=== PATIENT | female | born 1985 | race Caucasian/White ===

== ENCOUNTER 2016-10-08 11:09 | Emergency (ER) | payer MEDICAID ==
[~2016-10-08] VITALS: Ht 165.1 cm; Wt 76.0 kg
[~2016-10-08 11:09] MED LIST: ANTA250T PO; ZOLO50TA PO
[2016-10-08 11:23] VITALS: BP 138/92; PULSE 108; RESP 20; TEMP 98; O2SAT 97
--- NOTE | 2016-10-08 11:36 | PD ---
HPI Chief Complaint: Skin Problem Time Seen by Provider: 11:34 Travel History International Travel<30 days: No Contact w/Intl Traveler<30days: No Traveled to known affect area: No History of Present Illness HPI 31-year-old female presents the emergency department with right sided thigh painful swollen lesion for the past 3 days. Patient is unsure if this was due to some sort of bite or other cause. Patient has no history of MRSA or similar incidents in the past. Patient is very painful with the pain at 10 over 10 currently. She denies any spontaneous drainage from the area. She has had chills but no specific fever or other symptoms. She has no known drug allergies. PFSH Past Medical History Asthma: Yes (CHILDHOOD) Bipolar Disorder: Yes Anxiety: No Depression: Yes Cancer: Yes (NODULAR BASAL CELL CARCINOMA FOREHEAD 05/19) Cardiovascular Problems: No Chemotherapy: No Diminished Hearing: No Endocrine: No Gastrointestinal Disorders: Yes Genitourinary: Yes Hepatitis: Yes (HEP C) Immune Disorder: No Implanted Vascular Access Dvce: No Musculoskeletal: No Neurologic: No Psychiatric: Yes Reproductive: Yes (3 ABNORMAL PAP SMEARS 2013) Respiratory: Yes Immunizations Current: Yes Radiation Therapy: No ?: Not LMP: NOW : 1 Para: 1 Past Surgical History Abdominal Surgery: No Cardiac Surgery: No Section: Yes Ear Surgery: No Endocrine Surgery: No Eye Surgery: No Genitourinary Surgery: No Gynecologic Surgery: Yes Neurologic Surgery: No Oral Surgery: No Thoracic Surgery: Yes (BREAST AUGMENTATION) Other Surgery: Yes (Breast augmentation ) Social History Alcohol Use: Yes (4-5 shots weekly ) Tobacco Use: Yes (5-6 cigarettes per day ) Substance Use: No (hx of substance abuse (heroin)) Allergies-Medications (Allergen,Severity, Reaction): Coded Allergies: No Known Allergies (Verified , 10/08/16) Reported Meds & Prescriptions Reported Meds & Active Scripts Active Ibuprofen 800 Mg Tab 800 Mg PO Q8H PRN Bactrim DS (Sulfamethoxazole-Trimethoprim) 800-160 Mg Tab 1 Tab PO BID Acetaminophen Extra Strength (Acetaminophen) 500 Mg Cap 1,000 Mg PO Q6H PRN Review of Systems Except as stated in HPI: all other systems reviewed are Neg General / Constitutional: Positive: Chills, No: Fever Eyes: No: Visual changes HENT: No: Headaches Cardiovascular: No: Chest Pain or Discomfort Respiratory: No: Shortness of Breath Gastrointestinal: No: Abdominal Pain Genitourinary: No: Dysuria Musculoskeletal: No: Pain Skin: Positive Lesions (see history of present illness), No Rash Neurologic: No: Weakness Psychiatric: No: Depression Endocrine: No: Polydipsia Hematologic/Lymphatic: No: Easy Bruising Physical Exam Narrative GENERAL: Patient is in moderate distress. SKIN: Warm and dry. Normal Color. Normal turgor. Patient has tender, warm, indurated, lesion with erythema extending approximately 5 cm in diameter with central pointing consistent with abscess in the right upper posterior thigh. HEAD: Atraumatic. Normocephalic. EYES: Pupils equal and round. No scleral icterus. No injection or drainage. ENT: No nasal bleeding or discharge. Mucous membranes pink and moist. Pharynx is normal. NECK: Trachea midline. Neck is supple nontender. CARDIOVASCULAR: Regular rate and rhythm. RESPIRATORY: No accessory muscle use. Clear to auscultation. Breath sounds equal bilaterally. MUSCULOSKELETAL: Extremities without clubbing, cyanosis, or edema. No obvious deformities. NEUROLOGICAL: Awake and alert. No obvious cranial nerve deficits. Motor grossly within normal limits. Five out of 5 muscle strength in the arms and legs. Normal speech. PSYCHIATRIC: Appropriate mood and affect; insight and judgment normal. Data Data Last Documented VS Vital Signs Date Time Temp Pulse Resp B/P Pulse Ox O2 Delivery O2 Flow Rate FiO2 10/08/16 11:23 98.0 108 20 138/92 97 Orders Lidocai-Epi 1%-1:100,000 Inj (Xylocaine- (10/08/16 11:45) Wound Culture And Gram Stain (10/08/16 11:36) Ibuprofen (Motrin) (10/08/16 12:15) Sulfamet-Trimeth Ds 800-160 Mg (Bactrim (10/08/16 12:15) MDM Medical Decision Making Medical Screen Exam Complete: Yes Emergency Medical Condition: Yes Differential Diagnosis Cellulitis right thigh. MRSA. Abscess. Narrative Course Patient is in pain but medically stable at time of exam. I&D of abscess is performed, please see procedure note. Wound Culture sent to the lab. Patient is placed on Bactrim DS twice a day 7 days. Patient is given ibuprofen 600 mg 4 times a day when necessary. Patient is to return in 2 days for packing removal and wound check. Diagnosis Primary Impression: Abscess Patient Instructions: Abscess Incision and Drainage (ED), General Instructions , MRSA (Methicillin Resistant Staphylococcus Aureus) (ED) Additional Instructions: I&D of abscess is performed, please see procedure note. Wound Culture sent to the lab. Patient is placed on Bactrim DS twice a day 7 days. Patient is given ibuprofen 600 mg 4 times a day when necessary. Patient is to return in 2 days for packing removal and wound check. Med/Other Pt SpecificInfo: Prescription(s) given, Wound Care Scripts Ibuprofen 800 Mg Pfs065 Mg PO Q8H PRN (Pain/Inflammation) #30 TAB Prov:Kimani Guerrero MD 10/08/16 Sulfamethoxazole-Trimethoprim (Bactrim DS)800-160 Mg Tab1 Tab PO BID #14 TAB Prov:Kimani Guerrero MD 10/08/16 Acetaminophen (Acetaminophen Extra Strength)500 Mg Cap1,000 Mg PO Q6H PRN (PAIN SCALE 4 TO 10) #60 CAP Ref 1 Prov:Kimani Guerrero MD 10/08/16 Disposition: 01 DISCHARGE HOME Condition: Stable Rajan Torrez Oct 08, 2016 11:36
[2016-10-08] MEDS ORDERED: LIDOCAINE 1%/EPINEPHrine 1:100,000 SOLN 20 ML VIAL INFIL ONE (11:45)
[2016-10-08] MEDS ORDERED: BACT800T5 PO (12:12)
[2016-10-08] MEDS ORDERED: IBUP800T23 PO (12:12)
[2016-10-08] MEDS ORDERED: EXTR500C PO (12:12)
[2016-10-08] MEDS ORDERED: IBUPROFEN 800 MG TAB PO ONE (12:15)
[2016-10-08] MEDS ORDERED: SULFAMETHOXAZOLE-TRIMETHOPRIM DS 800-160 MG TAB PO ONE (12:15)
== END 2016-10-08 12:27 | disposition home or self-care (01) ==
LOC: PHEFT 11:09
DX: L02.415 Cutaneous abscess of right lower limb (principal); B95.62 Methicillin resistant Staphylococcus aureus infection as the cause of diseases classified elsewhere
CPT/HCPCS: 10061; 86403; 87070; 87186

== ENCOUNTER 2016-10-11 11:11 | Emergency (ER) | payer MEDICAID ==
[~2016-10-11] VITALS: Ht 165.1 cm; Wt 79.2 kg
[~2016-10-11 11:11] MED LIST changes: -ANTA250T PO; +BACT800T5 PO; +EXTR500C PO; +IBUP800T23 PO; -ZOLO50TA PO
[2016-10-11 11:19] VITALS: BP 117/80; PULSE 103; RESP 16; TEMP 98.2; O2SAT 99
--- NOTE | 2016-10-11 11:43 | PD ---
HPI Chief Complaint: Wound/Suture/Staple Re-Check Time Seen by Provider: 11:43 Travel History International Travel<30 days: No Contact w/Intl Traveler<30days: No Traveled to known affect area: No History of Present Illness HPI 31-year-old female presents to the ED for evaluation and packing removal of I&D of abscess of the right posterior thigh. Patient was seen 10/08/16 and an abscess I&D was performed. She states that her symptoms have improved. She denies fever or chills. She endorses compliance with antibiotics that were prescribed. PFSH Past Medical History Asthma: Yes (CHILDHOOD) Bipolar Disorder: Yes Anxiety: No Depression: Yes Cancer: Yes (NODULAR BASAL CELL CARCINOMA FOREHEAD 05/19) Cardiovascular Problems: No Chemotherapy: No Diminished Hearing: No Endocrine: No Gastrointestinal Disorders: Yes Genitourinary: Yes Hepatitis: Yes (HEP C) Immune Disorder: No Implanted Vascular Access Dvce: No Musculoskeletal: No Neurologic: No Psychiatric: Yes Reproductive: Yes (3 ABNORMAL PAP SMEARS 2013) Respiratory: Yes Immunizations Current: Yes Radiation Therapy: No Tetanus Vaccination: < 5 Years Influenza Vaccination: No ?: Not LMP: 10/08/16 : 1 Para: 1 Past Surgical History Abdominal Surgery: No Cardiac Surgery: No Section: Yes (x 1) Ear Surgery: No Endocrine Surgery: No Eye Surgery: No Genitourinary Surgery: No Gynecologic Surgery: Yes Neurologic Surgery: No Oral Surgery: No Thoracic Surgery: Yes (BREAST AUGMENTATION) Other Surgery: Yes (Breast augmentation ) Social History Alcohol Use: Yes (socially mix drinks) Tobacco Use: Yes (1/2PPD) Substance Use: No (hx of substance abuse (heroin)) Allergies-Medications (Allergen,Severity, Reaction): Coded Allergies: *MDRO Multi-Drug Resistant Organism (Verified Adverse Reaction, Unknown, ) MRSA (thigh)-10/08/16 Reported Meds & Prescriptions Reported Meds & Active Scripts Active Ibuprofen 800 Mg Tab 800 Mg PO Q8H PRN Bactrim DS (Sulfamethoxazole-Trimethoprim) 800-160 Mg Tab 1 Tab PO BID Acetaminophen Extra Strength (Acetaminophen) 500 Mg Cap 1,000 Mg PO Q6H PRN Review of Systems Except as stated in HPI: all other systems reviewed are Neg Physical Exam Narrative GENERAL: Well-nourished, well-developed white female no acute distress. SKIN: Warm and dry. There is a 1 cm puncture wound with a small amount of drainage on the posterior right thigh. There is a 1 cm circumferential area of tenderness surrounding this puncture wound. No erythema, warmth, cellulitic streaking. No packing present. HEAD: Normocephalic. EYES: No scleral icterus. No injection or drainage. NECK: Supple, trachea midline. No JVD or lymphadenopathy. CARDIOVASCULAR: Regular rate and rhythm without murmurs, gallops, or rubs. RESPIRATORY: Breath sounds equal bilaterally. No accessory muscle use. GASTROINTESTINAL: Abdomen soft, non-tender, nondistended. MUSCULOSKELETAL: No cyanosis, or edema. BACK: Nontender without obvious deformity. No CVA tenderness. Data Data Last Documented VS Vital Signs Date Time Temp Pulse Resp B/P Pulse Ox O2 Delivery O2 Flow Rate FiO2 10/11/16 11:25 16 10/11/16 11:19 98.2 103 117/80 99 MDM Medical Decision Making Medical Screen Exam Complete: Yes Emergency Medical Condition: Yes Differential Diagnosis Abscess recheck versus cellulitis versus wound infection versus other Narrative Course 31-year-old female presents to the ED for evaluation and packing removal of I&D of abscess of the right posterior thigh. Patient was seen 10/08/16 and an abscess I&D was performed. She states that her symptoms have improved. She denies fever or chills. She endorses compliance with antibiotics that were prescribed. Vitals reviewed. Physical examination reveals a well-appearing white female in no acute distress. There is a 1 cm puncture wound on the posterior right thigh, tender circumferentially. No erythema, warmth, cellulitic streaking. I probed the wound with a pair of forceps and there is no packing present. A clean, dry dressing was applied. Wound care instructions were reinforced. Plans with antibiotics was reinforced. Patient is instructed to follow-up with the primary care. She indicated understanding of the instructions. She is stable and discharged home. Diagnosis Primary Impression: Abscess re-check Referrals: Primary Care Physician Patient Instructions: Abscess Follow-up (ED), General Instructions Additional Instructions: Warm compresses applied to the area may help to crease pain and swelling. Continue antibiotics twice a day as prescribed until they're gone. [id number] pain medication such as ibuprofen as directed on label, as needed for pain. Follow-up with the primary care provider this week. Return to the ED for any urgent or emergent medical condition. Disposition: 01 DISCHARGE HOME Condition: Stable Vicki Dang Oct 11, 2016 11:43
== END 2016-10-11 12:03 | disposition home or self-care (01) ==
LOC: PHEFT 11:11
DX: Z48.00 Encounter for change or removal of nonsurgical wound dressing (principal)
CPT/HCPCS: 99281

== ENCOUNTER 2016-12-20 20:32 | Emergency (ER) | payer MEDICAID ==
[~2016-12-20] VITALS: Ht 167.6 cm; Wt 75.0 kg
[2016-12-20 20:34] VITALS: BP 157/107; PULSE 126; RESP 20; TEMP 99.1; O2SAT 96
[2016-12-20] MEDS ORDERED: SODIUM CHLOR 0.9% 1000 ML INJ 1,000 ML IV SCH (22:18)
[2016-12-20] MEDS ORDERED: ONDANSETRON HCL 4 MG/2 ML VIAL IVP ONE (22:30)
[2016-12-20] MEDS ORDERED: HYDROmorphone HCL PF 1 MG/ML VIAL IVS ONE (22:30)
[2016-12-20] MEDS ORDERED: ALUMINUM/MAGNESIUM/SIMETH 30 ML CUP PO ONE (22:30)
[2016-12-20] MEDS ORDERED: LIDOCAINE VISCOUS 2% SOLN 15 ML UDC PO ONE (22:30)
[2016-12-20] MEDS ORDERED: SODIUM CHLORIDE 0.9% FLUSH 10 ML FLUSH IV FLUSH PRN (22:30)
[2016-12-20] MEDS ORDERED: LITH300C2 PO (22:54)
[2016-12-20] MEDS ORDERED: IOHEXOL 350 MG/ML 10 ML VIAL (for RAD DIAG) IV ONE (23:00)
[2016-12-20 23:04] LABS: AUTOMATED NEUTROPHIL # 2.3 TH/MM3 (1.8-7.7); BASOPHIL # 0.1 TH/MM3 (0-0.2); BASOPHIL % 1.2 % (0.0-2.0); EOSINOPHIL # 0.1 TH/MM3 (0-0.4); EOSINOPHIL % 2.3 % (0.0-4.0); HEMATOCRIT 42.1 % (35.0-46.0); HEMO FLAGS DIFF FINAL; LYMPH % 52.3 % (9.0-44.0); LYMPHOCYTE # 3.1 TH/MM3 (1.0-4.8); MEAN CELL VOLUME 88.4 FL (80.0-100.0); MEAN CORPUSCULAR HEMOGLOBIN 29.6 PG (27.0-34.0); MEAN CORPUSCULAR HGB CONC 33.4 % (32.0-36.0); MONO % 4.4 % (0.0-8.0); NEUT % 39.8 % (16.0-70.0); PLATELET COUNT 130 TH/MM3 (150-450); RED BLOOD COUNT 4.77 MIL/MM3 (4.00-5.30); RED CELL DISTRIBUTION WIDTH 15.4 % (11.6-17.2); WHITE BLOOD COUNT 5.9 TH/MM3 (4.0-11.0)
--- NOTE | 2016-12-20 23:20 | RADRPT ---
EXAM DATE/TIME: 12/20/2016 22:57 [facility] COMPARISON: CT ABDOMEN & PELVIS W CONTRAST, April 03, 2014, 18:07. INDICATIONS : Right upper quadrant pain. IV CONTRAST: 97 cc Omnipaque 350 (iohexol) IV ORAL CONTRAST: No oral contrast ingested. RADIATION DOSE: 7.56 CTDIvol (mGy) MEDICAL HISTORY : Hepatitis C. SURGICAL HISTORY : section. ENCOUNTER: Initial ACUITY: 1 day PAIN SCALE: 5/10 LOCATION: Right upper quadrant abdomen TECHNIQUE: Volumetric scanning of the abdomen and pelvis was performed. Using automated exposure control and ad justment of the mA and/or kV according to patient size, radiation dose was kept as low as reasonably achievable to obtain optimal diagnostic quality images. FINDINGS: Lung bases are clear. Diffuse fatty infiltration of the liver similar to prior study. Spleen, adrenal s, kidneys and pancreas unremarkable. No calcified gallstones. No biliary ductal dilatation. There is no free fluid or free air. No bowel obstruction. No adenopathy. No acute bony abnormalities. Previous breast augmentation. CONCLUSION: 1. No acute findings. Diffuse fatty liver similar to prior study of 2016. Ousmane Trimble MD on December 20, 2016 at 23:12 Board Certified Radiologist. This report was verified electronically.
[2016-12-20 23:31] LABS: ANION GAP 13 MEQ/L (5-15)
--- NOTE | 2016-12-20 23:35 | PD ---
HPI Chief Complaint: Abdominal Pain Time Seen by Provider: 22:18 Travel History International Travel<30 days: No Contact w/Intl Traveler<30days: No Traveled to known affect area: No History of Present Illness HPI 31-year-old female arrives complaining of right upper quadrant pain. She has had it for 3 days. It became much worse tonight. Similar prior episodes have occurred. She has no urinary complaint. Last menstruation ascended today. The onset was gradual. She states it is excruciating. She drank 1 pint of liquor tonight. She smokes tobacco. She reports nausea vomiting and subjective fever. She's had diarrhea. Appetite has been decreased. PFSH Past Medical History Asthma: Yes (CHILDHOOD) Bipolar Disorder: Yes Anxiety: No Depression: Yes Cancer: Yes (NODULAR BASAL CELL CARCINOMA FOREHEAD 05/19) Cardiovascular Problems: No Chemotherapy: No Diminished Hearing: No Endocrine: No Gastrointestinal Disorders: Yes Genitourinary: Yes Hepatitis: Yes (HEP C) Immune Disorder: No Implanted Vascular Access Dvce: No Musculoskeletal: No Neurologic: No Psychiatric: Yes Reproductive: Yes (3 ABNORMAL PAP SMEARS 2013) Respiratory: Yes Immunizations Current: Yes Radiation Therapy: No ?: Not LMP: 5-15-17 : 1 Para: 1 Past Surgical History Abdominal Surgery: No Cardiac Surgery: No Section: Yes (x 1) Ear Surgery: No Endocrine Surgery: No Eye Surgery: No Genitourinary Surgery: No Gynecologic Surgery: Yes Neurologic Surgery: No Oral Surgery: No Thoracic Surgery: Yes (BREAST AUGMENTATION) Other Surgery: Yes (Breast augmentation ) Social History Alcohol Use: Yes (HEAVY) Tobacco Use: Yes (1/2PPD) Substance Use: No (hx of substance abuse (heroin)) Allergies-Medications (Allergen,Severity, Reaction): Coded Allergies: *MDRO Multi-Drug Resistant Organism (Verified Adverse Reaction, Unknown, ) MRSA (thigh)-10/08/16 Reported Meds & Prescriptions Reported Meds & Active Scripts Active Reglan (Metoclopramide HCl) 5 Mg Tab 5 Mg PO TIDAC PRN Lortab (Hydrocodone-Acetaminophen) 5-325 Mg Tab 1-2 Tab PO Q6H PRN Reported [place] Carbonate Unknown Strength Cap Unknown Dose PO BID Review of Systems Except as stated in HPI: all other systems reviewed are Neg Gastrointestinal: Positive: Nausea, Vomiting, Diarrhea, Abdominal Pain Physical Exam Narrative GENERAL: 31-year-old female mild distress secondary to pain SKIN: Focused skin assessment warm/dry. HEAD: Atraumatic. Normocephalic. EYES: Pupils equal and round. No scleral icterus. No injection or drainage. ENT: No nasal bleeding or discharge. Mucous membranes pink and moist. NECK: Trachea midline. No JVD. CARDIOVASCULAR: Regular rate and rhythm. No murmur appreciated. RESPIRATORY: No accessory muscle use. Clear to auscultation. Breath sounds equal bilaterally. GASTROINTESTINAL: Soft. Marked tenderness to palpation in the right upper quadrant. MUSCULOSKELETAL: No obvious deformities. No clubbing. No cyanosis. No edema. NEUROLOGICAL: Awake and alert. No obvious cranial nerve deficits. Motor grossly within normal limits. Normal speech. PSYCHIATRIC: Appropriate mood and affect; insight and judgment normal. Data Data Last Documented VS Vital Signs Date Time Temp Pulse Resp B/P Pulse Ox O2 Delivery O2 Flow Rate FiO2 12/20/16 20:34 99.1 126 20 157/107 96 Vital signs reviewed Orders Complete Blood Count With Diff (12/20/16 22:18) Comprehensive Metabolic Panel (12/20/16 22:18) Lipase (12/20/16 22:18) Urinalysis - C+S If Indicated (12/20/16 22:18) Ct Abd/Pel W Iv Contrast(Rout) (12/20/16 22:18) Iv Access Insert/Monitor (12/20/16 22:18) Ecg Monitoring (12/20/16 22:18) Oximetry (12/20/16 22:18) Ondansetron Inj (Zofran Inj) (12/20/16 22:30) Sodium Chlor 0.9% 1000 Ml Inj (Ns 1000 M (12/20/16 22:18) Sodium Chloride 0.9% Flush (Ns Flush) (12/20/16 22:30) Hydromorphone Pf Inj (Dilaudid Pf Inj) (12/20/16 22:30) Al-Mag Hy-Si 40-40-4 Mg/Ml Liq (Mag-Al P (12/20/16 22:30) Lidocaine 2% Viscous (Xylocaine 2% Visco (12/20/16 22:30) Alcohol (Ethanol) (12/20/16 22:18) Drug Screen, Random Urine (12/20/16 22:18) Iohexol 350 Inj (Omnipaque 350 Inj) (12/20/16 23:00) Labs Laboratory Tests Test 12/20/16 12/20/16 22:50 23:15 White Blood Count 5.9 TH/MM3 Red Blood Count 4.77 MIL/MM3 Hemoglobin 14.1 GM/DL Hematocrit 42.1 % Mean Corpuscular Volume 88.4 FL Mean Corpuscular Hemoglobin 29.6 PG Mean Corpuscular Hemoglobin 33.4 % Concent Red Cell Distribution Width 15.4 % Platelet Count 130 TH/MM3 Mean Platelet Volume 7.6 FL Neutrophils (%) (Auto) 39.8 % Lymphocytes (%) (Auto) 52.3 % Monocytes (%) (Auto) 4.4 % Eosinophils (%) (Auto) 2.3 % Basophils (%) (Auto) 1.2 % Neutrophils # (Auto) 2.3 TH/MM3 Lymphocytes # (Auto) 3.1 TH/MM3 Monocytes # (Auto) 0.3 TH/MM3 Eosinophils # (Auto) 0.1 TH/MM3 Basophils # (Auto) 0.1 TH/MM3 CBC Comment DIFF FINAL Differential Comment Sodium Level 141 MEQ/L Potassium Level 3.8 MEQ/L Chloride Level 104 MEQ/L Carbon Dioxide Level 23.7 MEQ/L Anion Gap 13 MEQ/L Blood Urea Nitrogen 4 MG/DL Creatinine 0.68 MG/DL Estimat Glomerular Filtration 102 ML/MIN Rate Random Glucose 85 MG/DL Calcium Level 8.7 MG/DL Total Bilirubin 0.4 MG/DL Aspartate Amino Transf 267 U/L (AST/SGOT) Alanine Aminotransferase 239 U/L (ALT/SGPT) Alkaline Phosphatase 108 U/L Total Protein 9.1 GM/DL Albumin 4.6 GM/DL Lipase 555 U/L Ethyl Alcohol Level 366 MG/DL Urine Color LIGHT-YELLOW Urine Turbidity HAZY Urine pH 7.0 Urine Specific [place] 1.009 Urine Protein TRACE mg/dL Urine Glucose (UA) NEG mg/dL Urine Ketones NEG mg/dL Urine Occult Blood NEG Urine Nitrite NEG Urine Bilirubin NEG Urine Urobilinogen LESS THAN 2.0 MG/DL Urine Leukocyte Esterase NEG Urine RBC 1 /hpf Urine WBC 1 /hpf Urine Squamous Epithelial <1 /hpf Cells Urine Amorphous Sediment RARE Microscopic Urinalysis Comment CULT NOT INDICATED Urine Opiates Screen NEG Urine Barbiturates Screen NEG Urine Amphetamines Screen NEG Urine Benzodiazepines Screen NEG Urine Cocaine Screen NEG Urine Cannabinoids Screen NEG MDM Medical Decision Making Medical Screen Exam Complete: Yes Emergency Medical Condition: Yes Medical Record Reviewed: Yes Differential Diagnosis Constipation, Gastritis, Acute Cholecystitis, Biliary Colic, Pancreatitis, KERR , Hepatitis, Bowel Obstruction, Cystitis, Mesenteric Ischemia, AAA, Appendicitis , Renal Stone/Hydronephrosis, GERD, perforated viscous Narrative Course CBC & BMP Diagram 12/20/16 22:50 AST 267 ALT 239 Lipase 555 EtOH 366 UA: No UTI Last 24 hours Impressions Abdomen/Pelvis CT 12/20/168 Signed Impressions: Service Date/Time: Tuesday, December 20, 2016 22:57 - CONCLUSION: 1. No acute findings. Diffuse fatty liver similar to prior study of 2016. Ousmane Trimble MD The patient is resting comfortably and feels better, is alert and in no distress. The patients results and examination findings were discussed. The repeat examination is unremarkable and benign. The history, exam, diagnostic testing, and current condition do not suggest any significant pathology to warrant further testing, continued ED treatment, admission, or surgical evaluation at this point. The vital signs have been stable. The patient does not have uncontrollable pain, intractable vomiting, or other significant symptoms. The patient's condition is stable and appropriate for discharge. The patient will pursue further outpatient evaluation with a primary care physician or other designated or consulting physician as indicated in the discharge instructions. The patient expressed understanding and was agreeable with this plan. Diagnosis Primary Impression: Pancreatitis, acute Qualified Code: K85.20 - Alcohol-induced acute pancreatitis, unspecified complication status Additional Impressions: Transaminitis Alcohol abuse Referrals: Meenakshi Orosco MD 2 days Additional Instructions: You have a choice when it comes to health care, and we are glad that you chose [facility]. Hopefully, we have met your expectations on today's visit. You are welcome to return to [facility] at any time, as we are committed to meeting the health care needs of our community. PLEASE STOP DRINKING ALCOHOL. Med/Other Pt SpecificInfo: Prescription(s) given Scripts Metoclopramide (Reglan)5 Mg Tab5 Mg PO TIDAC PRN (NAUSEA OR VOMITING) #10 TAB Ref 0 Prov:Irving Crespo MD 12/21/16 Hydrocodone-Acetaminophen (Lortab)5-325 Mg Tab1-2 Tab PO Q6H PRN (PAIN SCALE 6 TO 10) #20 TAB Ref 0 Prov:Irving Crespo MD 12/21/16 Disposition: 01 DISCHARGE HOME Condition: Stable Irving Crespo MD December 20, 2016 23:35
[2016-12-20 23:47] LABS: ALKALINE PHOSPHATASE 108 U/L (45-117); ALT (GPT) 239 U/L (10-53); AST (GOT) 267 U/L (15-37); BICARBONATE 23.7 MEQ/L (21.0-32.0); BLOOD UREA NITROGEN 4 MG/DL (7-18); CHLORIDE 104 MEQ/L (98-107); GLOMERULAR FILTRATION RATE 102 ML/MIN (>89); POTASSIUM 3.8 MEQ/L (3.5-5.1); SODIUM (NA) 141 MEQ/L (136-145); TOTAL BILIRUBIN ADULT 0.4 MG/DL (0.2-1.0)
[2016-12-20 23:54] LABS: BLOOD, URINE NEG (NEG); COMMENT (UR) CULT NOT INDICATED; CULTURE IF INDICATED CULT NOT INDICATED; GLUCOSE,URINE NEG (NEG); KETONE, URINE NEG (NEG); NITRITE,URINE NEG (NEG); SQUAMOUS EPITHELIAL CELL URINE <1 /hpf (0-5); URINE COLOR LIGHT-YELLOW (YELLW/STRAW)
[2016-12-20 23:58] LABS: AMPHETAMINE, URINE NEG (NEG); BARBITURATES, URINE NEG (NEG); COCAINE, URINE NEG (NEG)
[2016-12-21] MEDS ORDERED: HYDR-3533 PO (01:03)
[2016-12-21] MEDS ORDERED: REGL5TAB PO (01:03)
[2016-12-21] MEDS ORDERED: HYDROmorphone HCL PF 1 MG/ML VIAL IV PUSH ONE (01:30)
== END 2016-12-21 01:59 | disposition home or self-care (01) ==
LOC: NEPE 20:32
DX: K85.20 Alcohol induced acute pancreatitis without necrosis or infection (principal); R74.0 Nonspecific elevation of levels of transaminase and lactic acid dehydrogenase [LDH]; Z79.899 Other long term (current) drug therapy
CPT/HCPCS: 74177; 80053; 80307; 81001; 83690; 85025; 96361; 96374; 96375; 96376; 99284; J1170; J2405; J7030; Q9967

== ENCOUNTER 2017-02-01 20:35 | Inpatient (IN) | payer MEDICAID ==
[~2017-02-01] VITALS: Ht 165.1 cm; Wt 80.1 kg
[~2017-02-01 20:35] MED LIST changes: -BACT800T5 PO; -EXTR500C PO; +HYDR-3533 PO; -IBUP800T23 PO; +LITH300C2 PO; +REGL5TAB PO
[2017-02-01 20:36] VITALS: BP 151/103; PULSE 116; RESP 18; TEMP 97.9; O2SAT 97
[2017-02-01] MEDS ORDERED: SODIUM CHLOR 0.9% 1000 ML INJ 1,000 ML IV SCH (23:42)
[2017-02-01] MEDS ORDERED: ONDANSETRON HCL 4 MG/2 ML VIAL IVP ONE (23:45)
[2017-02-01] MEDS ORDERED: SODIUM CHLORIDE 0.9% FLUSH 10 ML FLUSH IV FLUSH PRN (23:45)
[2017-02-01] MEDS ORDERED: MORPHINE SULFATE 8 MG/ML INJ IV PUSH ONE (23:45)
--- NOTE | 2017-02-02 00:19 | PD ---
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 Patient states the right upper pain is similar to the that which she had with her pancreatitis. She reports nausea with no vomiting. She does report vaginal bleeding 2 days. She states it's a "lots" of blood. She denies any dizziness or lightheadedness. She does report that she started control pills and then stopped them that she wanted to give them to her sister. When asked when this was, she reports about a week ago. The patient also reports that she was called by the health Department tell her that she had bacterial vaginosis from a culture. The patient does have a history of HPV and has had abnormal Paps as well. PFSH Past Medical History Asthma: Yes (CHILDHOOD) Bipolar Disorder: Yes Anxiety: No Depression: Yes Cancer: Yes (NODULAR BASAL CELL CARCINOMA FOREHEAD 05/19) Cardiovascular Problems: No Chemotherapy: No Diminished Hearing: No Endocrine: No Gastrointestinal Disorders: Yes Genitourinary: Yes Hepatitis: Yes (HEP C) Immune Disorder: No Implanted Vascular Access Dvce: No Medical other: Yes (HPV) Musculoskeletal: No Neurologic: No Psychiatric: Yes Reproductive: Yes (3 ABNORMAL PAP SMEARS 2013) Respiratory: Yes Immunizations Current: Yes Radiation Therapy: No ?: Unknown LMP: 01/21/17 : 1 Para: 1 Past Surgical History Abdominal Surgery: No Cardiac Surgery: No Section: Yes (x 1) Ear Surgery: No Endocrine Surgery: No Eye Surgery: No Genitourinary Surgery: No Gynecologic Surgery: Yes Neurologic Surgery: No Oral Surgery: No Thoracic Surgery: Yes (BREAST AUGMENTATION) Other Surgery: Yes (Breast augmentation ) Social History Alcohol Use: Yes (WEANING DOWN...2 SHOTS PER DAY) Tobacco Use: Yes (1/2PPD) Substance Use: No (hx of substance abuse (heroin)) Allergies-Medications (Allergen,Severity, Reaction): Coded Allergies: *MDRO Multi-Drug Resistant Organism (Verified Adverse Reaction, Unknown, ) MRSA (thigh)-03/07/17 Reported Meds & Prescriptions Reported Meds & Active Scripts Active Reported [place] Carbonate Unknown Strength Cap Unknown Dose PO BID Review of Systems Except as stated in HPI: all other systems reviewed are Neg HENT: No: Headaches, Neck Pain Cardiovascular: No: Chest Pain or Discomfort, Palpitations Respiratory: No: Cough, Shortness of Breath Gastrointestinal: Positive: Nausea, Abdominal Pain, No: Vomiting, Diarrhea Genitourinary: Positive: Vaginal Bleeding, No: Frequency, Dysuria, Discharge Musculoskeletal: No: Weakness, Pain Neurologic: No: Weakness, Dizziness, Headache Physical Exam Narrative GENERAL: Developed well-nourished female in no acute respiratory distress. SKIN: Focused skin assessment warm/dry. HEAD: Atraumatic. Normocephalic. EYES: No scleral icterus. No injection or drainage. ENT: No nasal bleeding or discharge. Mucous membranes pink and moist. NECK: Trachea midline. Supple. CARDIOVASCULAR: Regular rate and rhythm. No murmur appreciated. RESPIRATORY: No accessory muscle use. Clear to auscultation. Breath sounds equal bilaterally. GASTROINTESTINAL: Abdomen soft, nondistended. She had tenderness to palpation in the right upper and epigastric area. There is also tenderness palpation in her right lower/middle abdominal area. No rebound. Positive guarding. GENITOURINARY: Deferred. MUSCULOSKELETAL: No obvious deformities. No clubbing. No cyanosis. No edema. NEUROLOGICAL: Awake and alert. No obvious cranial nerve deficits. Motor grossly within normal limits. Normal speech. PSYCHIATRIC: Appropriate mood and affect; insight and judgment normal. Data Data Last Documented VS Vital Signs Date Time Temp Pulse Resp B/P Pulse Ox O2 Delivery O2 Flow Rate FiO2 02/02/17 02:00 102 16 124/62 98 Room Air 02/01/17 20:36 97.9 Orders Comprehensive Metabolic Panel (02/01/17 23:42) Lipase (02/01/17 23:42) Urinalysis - C+S If Indicated (02/01/17 23:42) Ct Abd/Pel W Iv Contrast(Rout) (02/01/17 23:42) Iv Access Insert/Monitor (02/01/17 23:42) Ecg Monitoring (02/01/17 23:42) Oximetry (02/01/17 23:42) Ondansetron Inj (Zofran Inj) (02/01/17 23:45) Sodium Chlor 0.9% 1000 Ml Inj (Ns 1000 M (02/01/17 23:42) Sodium Chloride 0.9% Flush (Ns Flush) (02/01/17 23:45) Morphine Inj (Morphine Inj) (02/01/17 23:45) Ed Urine Pregnancytest Poc (02/01/17 23:42) Oral Contrast - Adult (02/01/17 23:48) Urine Culture (02/02/17 00:05) Hydromorphone Pf Inj (Dilaudid Pf Inj) (02/02/17 01:45) Sodium Chlor 0.9% 1000 Ml Inj (Ns 1000 M (02/02/17 01:45) Diatrizoate Liq ( Gastro[place] Liq) (02/02/17 02:05) Complete Blood Count With Diff (02/02/17 02:23) Admit Order (Ed Use Only) (02/02/17 02:48) Ceftriaxone Inj (Rocephin Inj) (02/02/17 03:00) Metronidazole (Flagyl) (02/02/17 03:00) Labs Laboratory Tests Test 02/02/17 00:05 Urine Color YELLOW Urine Turbidity CLEAR Urine pH 6.5 Urine Specific [place] 1.005 Urine Protein TRACE mg/dL Urine Glucose (UA) NEG mg/dL Urine Ketones NEG mg/dL Urine Occult Blood NEG Urine Nitrite NEG Urine Bilirubin NEG Urine Urobilinogen LESS THAN 2.0 MG/DL Urine Leukocyte Esterase TRACE Urine RBC 1 /hpf Urine WBC 4 /hpf Urine Bacteria MOD /hpf Urine Hyaline Casts 1 /lpf Microscopic Urinalysis Comment CULTURE INDICATED Sodium Level 142 MEQ/L Potassium Level 3.1 MEQ/L Chloride Level 108 MEQ/L Carbon Dioxide Level 24.9 MEQ/L Anion Gap 9 MEQ/L Blood Urea Nitrogen 5 MG/DL Creatinine 0.73 MG/DL Estimat Glomerular Filtration 94 ML/MIN Rate Random Glucose 101 MG/DL Calcium Level 8.8 MG/DL Total Bilirubin 0.3 MG/DL Aspartate Amino Transf 100 U/L (AST/SGOT) Alanine Aminotransferase 105 U/L (ALT/SGPT) Alkaline Phosphatase 87 U/L Total Protein 9.1 GM/DL Albumin 4.5 GM/DL Lipase 1344 U/L [facility] Medical Decision Making Medical Screen Exam Complete: Yes Emergency Medical Condition: Yes Differential Diagnosis [place] otitis versus cholecystitis versus appendicitis versus dysfunctional uterine bleeding Narrative Course 31-year-old female presents here with complaints of abdominal pain and vaginal bleeding. The patient is noted to have recurrent pancreatitis. Her potassium is also low. The patient's H&H is stable. She'll be admitted to the hospital. She is also to be treated for bacterial vaginosis with Flagyl. Her urinalysis was positive for UTI and she was given Rocephin 1 g I V times one dose. Case was discussed with Dr. Daigle who is agreeable to the admission. Diagnosis Primary Impression: Pancreatitis Additional Impressions: Hypokalemia Nausea & vomiting Bacterial vaginosis Alcohol abuse Admitting Information Admitting Physician Requests: Admit Jose Alonso MD Feb 02, 2017 00:19
[2017-02-02 00:43] LABS: BACTERIA, URINE MOD /hpf; BLOOD, URINE NEG (NEG); COMMENT (UR) CULTURE INDICATED; CULTURE IF INDICATED CULTURE INDICATED; GLUCOSE,URINE NEG (NEG); HYALINE CAST, URINE 1 /lpf (RARE); KETONE, URINE NEG (NEG); NITRITE,URINE NEG (NEG); PH, URINE 6.5 (5.0-8.5); URINE COLOR YELLOW (YELLW/STRAW)
[2017-02-02 00:57] LABS: ALT (GPT) 105 U/L (10-53); ANION GAP 9 MEQ/L (5-15); AST (GOT) 100 U/L (15-37); BICARBONATE 24.9 MEQ/L (21.0-32.0); BLOOD UREA NITROGEN 5 MG/DL (7-18); CHLORIDE 108 MEQ/L (98-107); GLOMERULAR FILTRATION RATE 94 ML/MIN (>89); POTASSIUM 3.1 MEQ/L (3.5-5.1); SODIUM (NA) 142 MEQ/L (136-145)
[2017-02-02 00:58] LABS: ALKALINE PHOSPHATASE 87 U/L (45-117); TOTAL BILIRUBIN ADULT 0.3 MG/DL (0.2-1.0)
[2017-02-02] MEDS ORDERED: HYDROmorphone HCL PF 1 MG/ML VIAL IVS ONE (01:45)
[2017-02-02] MEDS ORDERED: SODIUM CHLOR 0.9% 1000 ML INJ 1,000 ML IV ONE (01:45)
[2017-02-02 02:00] VITALS: BP 124/62; PULSE 102; RESP 16; O2SAT 98
[2017-02-02] MEDS ORDERED: DIATRIZOATE MEGLUM/DIATRIZOATE SOD 9 ML CUP ONE (02:05)
[2017-02-02] MEDS ORDERED: cefTRIAXone INJ 1,000 MG in SODIUM CHLORIDE 0.9% INJ 100 ML IV ONE (03:00)
[2017-02-02] MEDS ORDERED: metroNIDAZOLE 500 MG TAB PO ONE (03:00)
[2017-02-02] MEDS ORDERED: IOHEXOL 350 MG/ML 10 ML VIAL (for RAD DIAG) IV ONE (03:36)
--- NOTE | 2017-02-02 03:50 | RADRPT ---
EXAM DATE/TIME: 02/02/2017 03:32 [place] COMPARISON: No previous studies available for comparison. INDICATIONS : Right sided abdominal pain with heavy vaginal bleeding. IV CONTRAST: 76 cc Omnipaque 350 (iohexol) IV ORAL CONTRAST: Prescribed oral contrast ingested. RADIATION DOSE: 8.76 CTDIvol (mGy) MEDICAL HISTORY : Hepatitis C. Pancreatitis. Substance abuse. Skin cancer. SURGICAL HISTORY : section. Breast augmentation. ENCOUNTER: Initial ACUITY: 2 days PAIN SCALE: 6/10 LOCATION: Right abdomen TECHNIQUE: Volumetric scanning of the abdomen and pelvis was performed. Using automated exposure control and ad justment of the mA and/or kV according to patient size, radiation dose was kept as low as reasonably achievable to obtain optimal diagnostic quality images. DICOM format image data is available electro nically for review and comparison. FINDINGS: LOWER LUNGS: The visualized lower lungs are clear. LIVER: Homogeneously lower density without lesion. There is no dilation of the biliary tree. No calcified gallstones. SPLEEN: Normal size without lesion. PANCREAS: Within normal limits. KIDNEYS: Normal in size and shape. There is no mass, stone or hydronephrosis. ADRENAL GLANDS: Within normal limits. VASCULAR: There is no aortic aneurysm. BOWEL/MESENTERY: The stomach, small bowel, and colon demonstrate no acute abnormality. There is no free intraperitone al air or fluid. ABDOMINAL WALL: Within normal limits. RETROPERITONEUM: There is no lymphadenopathy. BLADDER: No wall thickening or mass. REPRODUCTIVE: Within normal limits. INGUINAL: There is no lymphadenopathy or hernia. MUSCULOSKELETAL: Within normal limits for patient age. CONCLUSION: Normal examination. The appendix is normal. Mildly fatty liver. Hair Cortez MD on February 02, 2017 at 3:47 Board Certified Radiologist. This report was verified electronically.
[2017-02-02 04:21] LABS: AUTOMATED NEUTROPHIL # 2.5 TH/MM3 (1.8-7.7); BASOPHIL # 0.1 TH/MM3 (0-0.2); BASOPHIL % 0.7 % (0.0-2.0); EOSINOPHIL # 0.1 TH/MM3 (0-0.4); EOSINOPHIL % 1.6 % (0.0-4.0); HEMATOCRIT 42.3 % (35.0-46.0); LYMPH % 58.1 % (9.0-44.0); LYMPHOCYTE # 4.5 TH/MM3 (1.0-4.8); MEAN CELL VOLUME 92.2 FL (80.0-100.0); MEAN CORPUSCULAR HEMOGLOBIN 30.7 PG (27.0-34.0); MEAN CORPUSCULAR HGB CONC 33.3 % (32.0-36.0); MONO % 6.6 % (0.0-8.0); PLATELET COUNT 242 TH/MM3 (150-450); RED BLOOD COUNT 4.59 MIL/MM3 (4.00-5.30); RED CELL DISTRIBUTION WIDTH 15.1 % (11.6-17.2); WHITE BLOOD COUNT 7.7 TH/MM3 (4.0-11.0)
[2017-02-02 04:28] LABS: HEMO FLAGS AUTO DIFF
[2017-02-02] MEDS ORDERED: LORazepam 2 MG/ML VIAL IV PUSH PRN ×4 (04:30)
[2017-02-02] MEDS ORDERED: FLUMAZENIL 0.5 MG/5 ML VIAL IV PUSH PRN (04:30)
[2017-02-02] MEDS ORDERED: LACTULOSE SYRUP 20 GM/30 ML CUP PO PRN (04:30)
[2017-02-02] MEDS ORDERED: LORazepam 2 MG TAB PO PRN (04:30)
[2017-02-02] MEDS ORDERED: SODIUM CHLORIDE 0.9% FLUSH 10 ML FLUSH IV FLUSH PRN (04:30)
[2017-02-02] MEDS ORDERED: BISACODYL 10 MG SUPP RECTAL PRN (04:30)
[2017-02-02] MEDS ORDERED: POTASSIUM CHLORIDE 20 MEQ CONTROLLED RELEASE TAB PO ONE ×2 (04:30→11:30)
[2017-02-02] MEDS ORDERED: SENNOSIDES 8.6 MG TAB PO PRN (04:30)
[2017-02-02] MEDS ORDERED: ACETAMINOPHEN 325 MG TAB PO PRN (04:30)
[2017-02-02] MEDS ORDERED: HALOPERIDOL LACTATE 5 MG/ML AMP IM PRN (04:30)
[2017-02-02] MEDS ORDERED: MAGNESIUM HYDROXIDE SUSP 30 ML CUP PO PRN (04:30)
--- NOTE | 2017-02-02 04:49 | HHI.HP ---
[facility] Primary Care Physician No Primary Care Physician Admission Diagnosis acute exacerbation of pacreatitis, vaginal bleeding, cysitis, bacter Diagnoses: (1) Pancreatitis Diagnosis: Principal (2) Bacterial vaginosis Diagnosis: Principal (3) Alcohol abuse Diagnosis: Principal (4) Hypokalemia Diagnosis: Principal (5) Hepatitis C Diagnosis: Principal (6) Tobacco abuse Diagnosis: Principal Travel History International Travel<30 Days: No Contact w/Intl Traveler <30 Da: No Traveled to Known Affected Are: No History of Present Illness This is a 31-year-old female with a PMH of Bipolar Disorder, Hepatitis C, HPV, Abnormal PAP, Alcohol Abuse, Tobacco Abuse and h/o Heroin Abuse who presented to the ER w/ complaints of RUQ pain x2 days. Reports symptoms similar to previous episodes of Pancreatitis. Denies fever, chills, nausea, vomiting or diarrhea. Also notes recent diagnosis of Bacterial Vaginosis, however did not follow up for treatment. On arrival, BP 151/103, HR 116, O2 sat 97% on RA, Afebrile. K+ 3.1. Lipase 1344. LFTs mildly elevated, improved from previous labs 12/20/16. CBC unremarkable. CT Abd/Pelvis normal. Review of Systems Except as stated in HPI: all other systems reviewed are Neg ROS: 14 point review of systems otherwise negative. Past Family Social History Past Medical History PMH: Bipolar Disorder, Hepatitis C, HPV, Abnormal PAP, Alcohol Abuse, Tobacco Abuse and h/o Heroin Abuse Past Surgical History PAST SURGICAL HISTORY: Breast Augmentation, Allergies: Coded Allergies: *MDRO Multi-Drug Resistant Organism (Verified Adverse Reaction, Unknown, ) MRSA (thigh)-10/08/16 Family History PAST FAMILY HISTORY: Reviewed. No h/o DM or CAD Social History PAST SOCIAL HISTORY: Positive for alcohol abuse, drinks daily. Smokes 1/2ppd. H/o Heroin Abuse. Physical Exam Vital Signs Vital Signs Date Time Temp Pulse Resp B/P Pulse Ox O2 Delivery O2 Flow Rate FiO2 02/02/17 02:00 102 16 124/62 98 Room Air 02/01/17 20:36 97.9 116 18 151/103 97 Room Air Physical Exam PE: GENERAL: White female in no acute distress. HEENT: PERRLA, EOMI. No scleral icterus or conjunctival pallor. No lid lag or facial droop. CARDIOVASCULAR: Regular rate and rhythm. No obvious murmurs to auscultation. No chest tenderness to palpation. RESPIRATORY: No obvious rhonchi or wheezing. Clear to auscultation. Breath sounds equal bilaterally. GASTROINTESTINAL: Abdomen soft, RUQ tenderness palpation, nondistended. BS normal. MUSCULOSKELETAL: Extremities without clubbing, cyanosis, or edema. No obvious deformities. NEUROLOGICAL: Awake, alert and oriented x4. No focal neurologic deficits. Moving both upper and lower extremities spontaneously. Laboratory Laboratory Tests Test 02/02/17 02/02/17 00:05 03:40 Urine Color YELLOW Urine Turbidity CLEAR Urine pH 6.5 Urine Specific [place] 1.005 Urine Protein TRACE Urine Glucose (UA) NEG Urine Ketones NEG Urine Occult Blood NEG Urine Nitrite NEG Urine Bilirubin NEG Urine Urobilinogen LESS THAN 2.0 Urine Leukocyte Esterase TRACE Urine RBC 1 Urine WBC 4 Urine Bacteria MOD Urine Hyaline Casts 1 Microscopic Urinalysis Comment CULTURE INDICATED Sodium Level 142 Potassium Level 3.1 Chloride Level 108 Carbon Dioxide Level 24.9 Anion Gap 9 Blood Urea Nitrogen 5 Creatinine 0.73 Estimat Glomerular Filtration 94 Rate Random Glucose 101 Calcium Level 8.8 Total Bilirubin 0.3 Aspartate Amino Transf 100 (AST/SGOT) Alanine Aminotransferase 105 (ALT/SGPT) Alkaline Phosphatase 87 Total Protein 9.1 Albumin 4.5 Lipase 1344 White Blood Count 7.7 Red Blood Count 4.59 Hemoglobin 14.1 Hematocrit 42.3 Mean Corpuscular Volume 92.2 Mean Corpuscular Hemoglobin 30.7 Mean Corpuscular Hemoglobin 33.3 Concent Red Cell Distribution Width 15.1 Platelet Count 242 Mean Platelet Volume 8.2 Neutrophils (%) (Auto) 33.0 Lymphocytes (%) (Auto) 58.1 Monocytes (%) (Auto) 6.6 Eosinophils (%) (Auto) 1.6 Basophils (%) (Auto) 0.7 Neutrophils # (Auto) 2.5 Lymphocytes # (Auto) 4.5 Monocytes # (Auto) 0.5 Eosinophils # (Auto) 0.1 Basophils # (Auto) 0.1 CBC Comment AUTO DIFF Date/Time Procedure Status Source Growth 02/02/17 00:05 Urine Culture Received Urine Random Urine Pending Result Diagram: 02/02/17 0340 02/02/17 0005 Assessment and Plan Problem List: (1) Pancreatitis ICD Code: K85.90 Status: Acute (2) Bacterial vaginosis ICD Code: N76.0 Status: Acute (3) Hypokalemia ICD Code: E87.6 Status: Acute (4) Hepatitis C ICD Code: B19.20 Status: Acute (5) Alcohol abuse ICD Code: F10.10 Status: Acute (6) Tobacco abuse ICD Code: Z72.0 Status: Acute Assessment and Plan A/P: 1. Pancreatitis: Recurrent. Secondary to Alcohol Abuse. Acute onset of RUQ pain x2 days, Lipase 1344. Protonix IV. Clear liquids, advance diet as tolerated. Analgesics/antiemetics. IVF for hydration. CT Abd/Pelvis w/ no acute findings, images reviewed by me. 2. Bacterial Vaginosis: Untreated. Called by Health Dept w/ results, however never presented for treatment. S/p Flagyl 500mg po in ER, will continue w/ Flagyl 500mg po bid x7 days. 3. Hypokalemia: K+ 3.1. Will replace and recheck in am. 4. Hepatitis C: Stable. LFTs elevated, mildly improved from last labs . 5. Alcohol Abuse: Drinks daily. High risk for withdrawal. CIWA, Seizure Precautions, MVT/Thiamine/Folate 6. Tobacco Abuse: Pt counselled. NicoDerm prn if needed. 7. Social work for d/c planning as needed. 8. Case discussed w/ ER physician at length. Physician Certification 2 Midnight Certification Type: Admission for Inpatient Services Order for Inpatient Services The services are ordered in accordance with Medicare regulations or non- Medicare payer requirements, as applicable. In the case of services not specified as inpatient-only, they are appropriately provided as inpatient services in accordance with the 2-midnight benchmark. Estimated LOS (days): 2 days is the estimated time the patient will need to remain in the hospital, assuming treatment plan goals are met and no additional complications. Post-Hospital Plan: Not yet determined Inés Bonner MD Feb 02, 2017 04:49
[2017-02-02 04:59] LABS: PLATELET ESTIMATE SMEAR NORMAL (NORMAL); PLATELET MORPHOLOGY NORMAL (NORMAL); SCAN/DIFF AUTO DIFF CONFIRMED
[2017-02-02] MEDS: SODIUM CHLOR 0.9% 1000 ML INJ 1,000 ML IV SCH ×3 (05:00→20:54)
[2017-02-02 05:50] VITALS: BP 111/63; PULSE 75; RESP 16; TEMP 96.6; O2SAT 96
[2017-02-02] MEDS: MORPHINE SULFATE 4 MG/ML INJ IV PRN ×4 (06:00→20:55)
[2017-02-02] MEDS: ONDANSETRON HCL 4 MG/2 ML VIAL IVP PRN ×3 (06:01→20:54)
[2017-02-02 08:00] VITALS: BP 98/62; PULSE 73; RESP 18; TEMP 97; O2SAT 96
[2017-02-02] MEDS: PANTOPRAZOLE SODIUM 40 MG VIAL IV PUSH SCH ×2 (08:15→20:55)
[2017-02-02] MEDS: metroNIDAZOLE 500 MG TAB PO SCH ×2 (08:16→20:55)
[2017-02-02] MEDS: MULTIVITAMINS/MINERALS THERAPEUTIC TAB PO SCH (08:16)
[2017-02-02] MEDS: FOLIC ACID 1 MG TAB PO SCH (08:16)
[2017-02-02] MEDS: THIAMINE HCL 100 MG TAB PO SCH (08:16)
[2017-02-02] MEDS: SODIUM CHLORIDE 0.9% FLUSH 10 ML FLUSH IV FLUSH SCH (08:17)
--- NOTE | 2017-02-02 11:11 | HHI.PR ---
Subjective Remarks No acute events overnight. Afebrile, vital signs stable. Patient continues to complain of epigastric and abdominal pain. Relieved with morphine. Denies any back pain. Denies nausea/vomiting. Tolerating clears. Request that her diet be advanced. Objective Vitals Vital Signs Date Time Temp Pulse Resp B/P Pulse Ox O2 Delivery O2 Flow Rate FiO2 02/02/17 08:00 97.0 73 18 98/62 96 02/02/17 05:50 96.6 75 16 111/63 96 02/02/17 02:00 102 16 124/62 98 Room Air 02/01/17 20:36 97.9 116 18 151/103 97 Room Air Result Diagram: 02/02/17 0340 02/02/17 0005 Objective Remarks Gen.: No acute distress Head: Normocephalic. Atraumatic. EENT: Pupils equal round and reactive to light. Nose without drainage. Airway intact. Throat without injection. Cardiovascular: Regular rate and rhythm. No murmurs, rubs or gallops. Respiratory: Lungs clear to auscultation bilaterally. No wheezes or rhonchi. Abdomen: Soft, nontender, nondistended. No peritoneal signs. Musculoskeletal: No gross deformities. No edema. Skin: No obvious rashes or erythema. Neuro: Sensory and motor grossly intact. Cranial nerves II through XII grossly intact. Psych: Appropriate mood and affect A/P Problem List: (1) Pancreatitis ICD Code: K85.90 Status: Acute (2) Bacterial vaginosis ICD Code: N76.0 Status: Acute (3) Hypokalemia ICD Code: E87.6 Status: Acute (4) Hepatitis C ICD Code: B19.20 Status: Acute (5) Alcohol abuse ICD Code: F10.10 Status: Chronic (6) Tobacco abuse ICD Code: Z72.0 Status: Acute (7) UTI (urinary tract infection) ICD Code: N39.0 Status: Acute Assessment and Plan 1. Pancreatitis: Recurrent. Secondary to Alcohol Abuse. Acute onset of RUQ pain x2 days, Lipase 1344. Protonix IV. Advance to low-fat diet. Analgesics/ antiemetics. IVF for hydration. CT Abd/Pelvis w/ no acute findings. 2. Bacterial Vaginosis: Untreated. Called by [facility] Dept w/ results, however never presented for treatment. S/p Flagyl 500mg po in ER, will continue w/ Flagyl 500mg po bid x7 days. 3. UTI. Rocephin 3 days. 3. Hypokalemia: K+ 3.1. Will replace and recheck in am. 4. Hepatitis C: Stable. LFTs elevated, mildly improved from last labs . 5. Alcohol Abuse: Drinks daily. High risk for withdrawal. CIWA, Seizure Precautions, MVT/Thiamine/Folate 6. Tobacco Abuse: Pt counselled. NicoDerm prn if needed. 7. Social work for d/c planning as needed. Dasia Edwards MD R3 Feb 02, 2017 11:11
[2017-02-02] MEDS: DOCUSATE SODIUM 50 MG/SENNA 8.6 MG TAB PO SCH ×2 (11:16→20:55)
[2017-02-02 12:00] VITALS: BP 112/68; PULSE 80; RESP 20; TEMP 96.8; O2SAT 98
[2017-02-02] MEDS: LORazepam 1 MG TAB PO PRN (15:29)
[2017-02-02 15:40] VITALS: BP 120/64; PULSE 74; RESP 16; TEMP 96.5; O2SAT 99
[2017-02-02 20:00] VITALS: BP 123/71; PULSE 75; RESP 18; TEMP 98.8; O2SAT 98
[2017-02-03] VITALS: BP 135/87; PULSE 89; RESP 22; TEMP 97.1; O2SAT 98
[2017-02-03] MEDS: SODIUM CHLORIDE 0.9% FLUSH 10 ML FLUSH IV FLUSH SCH ×2 (01:45→08:41)
[2017-02-03 04:00] VITALS: BP 127/64; PULSE 72; RESP 18; TEMP 96.1; O2SAT 96
[2017-02-03] MEDS ORDERED: cefTRIAXone INJ 1,000 MG in SODIUM CHLORIDE 0.9% INJ 100 ML IV SCH ×4 (04:00)
[2017-02-03] MEDS: MORPHINE SULFATE 4 MG/ML INJ IV PRN ×2 (04:19→11:22)
[2017-02-03] MEDS: SODIUM CHLOR 0.9% 1000 ML INJ 1,000 ML IV SCH (04:21)
[2017-02-03 07:32] VITALS: BP 147/77; PULSE 66; RESP 18; TEMP 95.5; O2SAT 98
[2017-02-03 07:44] LABS: AUTOMATED NEUTROPHIL # 2.2 TH/MM3 (1.8-7.7); BASOPHIL % 0.8 % (0.0-2.0); EOSINOPHIL # 0.2 TH/MM3 (0-0.4); EOSINOPHIL % 3.8 % (0.0-4.0); HEMO FLAGS DIFF FINAL; LYMPH % 38.7 % (9.0-44.0); LYMPHOCYTE # 1.7 TH/MM3 (1.0-4.8); MEAN CELL VOLUME 90.4 FL (80.0-100.0); MEAN CORPUSCULAR HEMOGLOBIN 30.5 PG (27.0-34.0); MEAN CORPUSCULAR HGB CONC 33.7 % (32.0-36.0); MONO % 6.2 % (0.0-8.0); NEUT % 50.5 % (16.0-70.0); PLATELET COUNT 165 TH/MM3 (150-450); RED CELL DISTRIBUTION WIDTH 14.5 % (11.6-17.2); WHITE BLOOD COUNT 4.4 TH/MM3 (4.0-11.0)
[2017-02-03] MEDS: PANTOPRAZOLE SODIUM 40 MG VIAL IV PUSH SCH (08:40)
[2017-02-03] MEDS: THIAMINE HCL 100 MG TAB PO SCH (08:40)
[2017-02-03] MEDS: DOCUSATE SODIUM 50 MG/SENNA 8.6 MG TAB PO SCH (08:41)
[2017-02-03] MEDS: MULTIVITAMINS/MINERALS THERAPEUTIC TAB PO SCH (08:41)
[2017-02-03] MEDS: FOLIC ACID 1 MG TAB PO SCH (08:41)
[2017-02-03] MEDS: metroNIDAZOLE 500 MG TAB PO SCH (08:41)
[2017-02-03 08:48] LABS: ALKALINE PHOSPHATASE 66 U/L (45-117); ALT (GPT) 75 U/L (10-53); ANION GAP 7 MEQ/L (5-15); AST (GOT) 58 U/L (15-37); BLOOD UREA NITROGEN 3 MG/DL (7-18); CHLORIDE 106 MEQ/L (98-107); GLOMERULAR FILTRATION RATE 115 ML/MIN (>89); POTASSIUM 3.9 MEQ/L (3.5-5.1); SODIUM (NA) 141 MEQ/L (136-145); TOTAL BILIRUBIN ADULT 0.5 MG/DL (0.2-1.0)
[2017-02-03] MEDS ORDERED: HYDR-3533 PO (11:10)
[2017-02-03] MEDS ORDERED: METR-1 PO (11:10)
--- NOTE | 2017-02-03 11:10 | HHI.PR ---
Subjective Remarks Patient seen in follow-up for acute pancreatitis. She reports that her pain significantly improved. She tolerated her diet. No fevers or chills. Objective Vitals Vital Signs Date Time Temp Pulse Resp B/P Pulse Ox O2 Delivery O2 Flow Rate FiO2 02/03/17 07:32 95.5 66 18 147/77 98 02/03/17 04:24 16 02/03/17 04:00 96.1 72 18 127/64 96 02/03/17 02:34 18 02/03/17 00:00 97.1 89 22 135/87 98 02/02/17 20:00 98.8 75 18 123/71 98 02/02/17 15:40 96.5 74 16 120/64 99 02/02/17 12:00 96.8 80 20 112/68 98 I/O 02/02/17 02/02/17 02/02/17 02/03/17 02/03/17 02/03/17 07:00 15:00 23:00 07:00 15:00 23:00 Intake Total 1440 ml 2471 ml 924 ml Output Total 1600 ml Balance -160 ml 2471 ml 924 ml Intake Oral 1440 ml 780 ml 300 ml IV Total 1691 ml 624 ml Output Urine Total 1600 ml # Voids 5 1 2 # Bowel Movements 0 0 Result Diagram: 02/03/17 0632 02/03/17 0632 Imaging Last Impressions Abdomen/Pelvis CT 02/01/17 2342 Signed Impressions: Service Date/Time: Thursday, February 02, 2017 03:32 - CONCLUSION: Normal examination. The appendix is normal. Mildly fatty liver. Hair Cortez MD Objective Remarks GENERAL: This is a well-nourished, well-developed patient, in no apparent distress. CARDIOVASCULAR: Normal rate and regular rhythm without murmurs, gallops, or rubs. RESPIRATORY: Good respiratory efforts. Breath sounds equal and clear to auscultation bilaterally. GASTROINTESTINAL: Abdomen soft, nondistended, mild tenderness to palpation in the mid epigastric region and right upper quadrant. Normal active bowel sounds. MUSCULOSKELETAL: Extremities without cyanosis, or edema. NEURO: Alert & Oriented x4 to person, place, time, situation. Moves all ext x4 PSYCH: Appropriate mood and affect. A/P Problem List: (1) Pancreatitis ICD Code: K85.90 Status: Acute (2) Bacterial vaginosis ICD Code: N76.0 Status: Acute (3) Hypokalemia ICD Code: E87.6 Status: Acute (4) Hepatitis C ICD Code: B19.20 Status: Acute (5) Alcohol abuse ICD Code: F10.10 Status: Chronic (6) Tobacco abuse ICD Code: Z72.0 Status: Acute (7) UTI (urinary tract infection) ICD Code: N39.0 Status: Acute Assessment and Plan 31-year-old female admitted with recurrent pancreatitis secondary to alcohol abuse. Patient admitted and treated with IV fluid, pain medication. CT of the abdomen and pelvis was unremarkable. Pancreatitis quickly resolved. Patient is discharge home in good condition. Patient also recently diagnosed with bacterial vaginosis from the health department but that was untreated. Treatment started here and the patient was given a prescription to continue treatment with Flagyl 500 mg by mouth twice a day. Other conditions treated include UTI. Patient received a dose of Rocephin. She was completely asymptomatic from a urinary standpoint, therefore antibiotics were not continued. Hypokalemia: K+ 3.1. Potassium replaced and repeat levels were normal. Hepatitis C: Stable. LFTs elevated, mildly improved from last labs 12/20/16. Alcohol Abuse: Drinks daily. MVT/Thiamine/Folate. Patient was counseled to quit. Tobacco Abuse: Pt counselled. Discharge Planning Discharge home in good condition Diet: Low-fat diet Activity: Regular as tolerated Meds: Per med rec Follow-up: With her PCP within one week. Roshan Man MD Feb 03, 2017 11:10
--- NOTE | 2017-02-03 11:11 | HHI.DCPOC ---
Discharge Care Plan Diagnosis: (1) Pancreatitis, acute (2) Alcohol abuse (3) Tobacco abuse (4) Bacterial vaginosis Goals to Promote Your Health * To prevent worsening of your condition and complications * To maintain your health at the optimal level Directions to Meet Your Goals Take your medications as prescribed Follow your dietary instruction Follow activity as directed Keep your appointments as scheduled Take your immunizations and boosters as scheduled If your symptoms worsen call your PCP, if no PCP go to Urgent Care Center or Emergency Room Smoking is Dangerous to Your Health. Avoid second hand smoke Call the 24-hour hour crisis hotline for domestic abuse at Roshan Man MD Feb 03, 2017 11:11
[2017-02-03 11:32] VITALS: BP 128/79; PULSE 84; RESP 17; TEMP 96.9; O2SAT 99
[2017-02-03] MEDS: LORazepam 1 MG TAB PO PRN (13:01)
== END 2017-02-03 13:39 | disposition home or self-care (01) | DRG 439 ==
LOC: NEPE 20:35 → NEDA 02-02 02:52 → N06B 02-02 05:27
PROVIDERS: ADMIT Family Medicine; ATTEND Family Medicine
DX: K85.90 Acute pancreatitis without necrosis or infection, unspecified (principal); N39.0 Urinary tract infection, site not specified; E87.6 Hypokalemia; N76.0 Acute vaginitis; F10.10 Alcohol abuse, uncomplicated; B19.20 Unspecified viral hepatitis C without hepatic coma; F31.9 Bipolar disorder, unspecified
CPT/HCPCS: 74177; 80053; 81001; 82948; 83690; 84703; 85025; 87086; 87641; 96361; 96374; 96375; C9113; J0696; J1170; J2060; J2270; J2405; J7030; Q9963; Q9967

== ENCOUNTER 2017-04-26 16:34 | Emergency (ER) | payer MEDICAID, OTHER ==
[~2017-04-26] VITALS: Ht 170.2 cm; Wt 75.0 kg
[~2017-04-26 16:34] MED LIST changes: +METR-1 PO; -REGL5TAB PO
[2017-04-26] MEDS ORDERED: HYDROmorphone HCL PF 2 MG/ML VIAL IV PUSH ONE (17:00)
[2017-04-26] MEDS ORDERED: PROPOFOL 200 MG/20 ML AMP IV ONE (17:00)
[2017-04-26 17:05] VITALS: BP 168/80; PULSE 67; RESP 20; TEMP 98.1; O2SAT 98
--- NOTE | 2017-04-26 17:16 | PD ---
HPI . Right shoulder injury Chief Complaint: Injury Time Seen by Provider: 16:42 Travel History International Travel<30 days: No Contact w/Intl Traveler<30days: No Traveled to known affect area: No History of Present Illness HPI This patient is brought to us via rescue with the chief complaint of her right shoulder injury. The injury occurred just prior to presentation. She reports severe pain in her right shoulder. Pain is exacerbated by palpation or movement. Pain has been unrelieved by morphine 10 mg IV administered per EMS. PFSH Past Medical History Asthma: Yes (CHILDHOOD) Bipolar Disorder: Yes Anxiety: No Depression: Yes Cancer: Yes (NODULAR BASAL CELL CARCINOMA FOREHEAD 05/19) Cardiovascular Problems: No Chemotherapy: No Diminished Hearing: No Endocrine: No Gastrointestinal Disorders: Yes Genitourinary: Yes Hepatitis: Yes (HEP C) Immune Disorder: No Implanted Vascular Access Dvce: No Musculoskeletal: No Neurologic: No Psychiatric: Yes Reproductive: Yes (3 ABNORMAL PAP SMEARS 2013) Respiratory: Yes Immunizations Current: Yes Radiation Therapy: No ?: Not : 1 Para: 1 Past Surgical History Abdominal Surgery: No Cardiac Surgery: No Section: Yes (x 1) Ear Surgery: No Endocrine Surgery: No Eye Surgery: No Genitourinary Surgery: No Gynecologic Surgery: Yes Neurologic Surgery: No Oral Surgery: No Thoracic Surgery: Yes (BREAST AUGMENTATION) Other Surgery: Yes (Breast augmentation ) Social History Alcohol Use: Yes (WEANING DOWN...2 SHOTS PER DAY) Tobacco Use: Yes (1/2PPD) Substance Use: No (hx of substance abuse (heroin)) Allergies-Medications (Allergen,Severity, Reaction): Coded Allergies: *MDRO Multi-Drug Resistant Organism (Verified Adverse Reaction, Unknown, ) MRSA (thigh)-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 She appears to be in distress. SKIN: Intact. No rashes or lesions. HEAD: Normocephalic/atraumatic. EYES: Pupils are equal. Extraocular movements are intact. NECK: Full range of motion without pain. CARDIOVASCULAR: Heart sounds are normal. RESPIRATORY: Lungs are clear with good air movement throughout. MUSCULOSKELETAL: Right shoulder has a dip between the acromion and humeral head. She has normal movement and sensation distal to injury. NEUROLOGICAL: Nonfocal. PSYCHIATRIC: Appropriate mood and affect. Data Data Last Documented VS Vital Signs Date Time Temp Pulse Resp B/P (MAP) Pulse Ox O2 Delivery O2 Flow Rate FiO2 04/26/17 17:53 98 Nasal Cannula 3.00 04/26/17 17:05 98.1 67 20 168/80 (109) Orders Orders Consent (04/26/17 16:46) Hydromorphone Pf Inj (Dilaudid Pf Inj) (04/26/17 17:00) Propofol 200 Mg/20 Ml Inj (Diprivan 200 (04/26/17 17:00) Shoulder, Limited(2vws) (04/26/17 16:46) Shoulder, Limited(2vws) (04/26/17 ) MDM Medical Decision Making Medical Screen Exam Complete: Yes Emergency Medical Condition: Yes Medical Record Reviewed: Yes (this patient has a history of heroin abuse. He also has a history of alcohol abuse. She has hep C and a history of pancreatitis.) Differential Diagnosis Differential diagnosis of extremity trauma includes but is not limited to fracture, sprain or strain, dislocation, contusion Narrative Course This patient presents with a right shoulder injury. She has a shoulder dislocation on exam. We have had her sign consent for conscious sedation and reduction of her shoulder. She will be treated with Dilaudid, 2 mg IV. X-rays will be obtained. Myself and one of the nurse practitioners will then do conscious sedation and reduction. I have subsequently reviewed her records learned that she has a history of heroin abuse. This probably explains why morphine did not help her pain. Postreduction films show anatomical realignment. She'll be discharged with referral to orthopedics. Procedures Procedure Narrative After the risks and benefits were discussed the following procedure was performed: MODERATE SEDATION: The patient was placed on a youth nutritional monitor and pulse oximetry. An ambu bag and suction was immediately available at bedside. The patient was monitored by the nurse and respiratory therapist. Oxygen saturation, capnography, heart rate and blood pressure were monitored. Procedural sedation was acheived using propofol. The patient was observed until awake and alert. Procedural Sedation time in attendance was 15 minutes. Diagnosis Primary Impression: Dislocation of right shoulder joint Qualified Codes: S43.004A - Unspecified dislocation of right shoulder joint, initial encounter Additional Impression: Fracture of greater tuberosity of right humerus Qualified Codes: S42.251A - Displaced fracture of greater tuberosity of right humerus, initial encounter for closed fracture Referrals: Alessandro Mcbride MD 3 days Patient Instructions: General Instructions, Shoulder Dislocation (DC) Med/Other Pt SpecificInfo: Prescription(s) given Scripts Tramadol (Ultram) 50 Mg Tab 50 MG PO Q4H Y for PAIN, #12 TAB 0 Refills Prov: Uma Lopez MD 04/26/17 Ibuprofen (Ibuprofen) 800 Mg Tab 800 MG PO Q8H Y for Pain/Inflammation, #60 TAB 0 Refills Prov: Uma Lopez MD 04/26/17 Disposition: 01 DISCHARGE HOME Condition: Stable Uma Lopez MD Apr 26, 2017 17:16
--- NOTE | 2017-04-26 17:33 | RADRPT ---
EXAM DATE/TIME: 04/26/2017 17:12 [facility] COMPARISON: No previous studies available for comparison. INDICATIONS : Trauma, pain in right shoulder due to fall. MEDICAL HISTORY : None. SURGICAL HISTORY : None. ENCOUNTER: Initial ACUITY: 1 day PAIN SCORE: 10/10 LOCATION: Right shoulder. FINDINGS: Multiple views of the right shoulder were obtained demonstrate an anterior dislocation of the shoulde r with fracture of the greater tuberosity. This is mildly comminuted and displaced up to 2 cm. The gl enoid is intact. There is normal mineralization. The acromioclavicular joint is within normal limits. No focal soft tissue abnormalities identified radiographically. CONCLUSION: 1. Anterior shoulder dislocation. 2. Oblique comminuted fracture of the greater tuberosity. Eren Delgadillo MD on April 26, 2017 at 17:30 Board Certified Radiologist. This report was verified electronically.
[2017-04-26 17:53] VITALS: O2SAT 98
[2017-04-26] MEDS ORDERED: IBUP800T23 PO (18:18)
[2017-04-26] MEDS ORDERED: ULTR50TA5 PO (18:18)
--- NOTE | 2017-04-26 18:18 | RADRPT ---
EXAM DATE/TIME: 04/26/2017 17:48 [facility] COMPARISON: SHOULDER RIGHT LTD (2VWS), April 26, 2017, 17:12. INDICATIONS : Dislocation, post reduction. MEDICAL HISTORY : None. SURGICAL HISTORY : None. ENCOUNTER: Initial ACUITY: 1 day PAIN SCORE: 6/10 LOCATION: Right anterior shoulder. FINDINGS: The post reduction examination demonstrates reduction of the previously noted anterior dislocation. A comminuted fracture of the greater tuberosity is again noted and is in near-anatomic alignment. The chronic clavicular joint and coracoclavicular distances are within normal limits. CONCLUSION: 1. Reduction of the previously noted anterior dislocation. 2. The greater tuberosity fracture is in near anatomic alignment. Eren Delgadillo MD on April 26, 2017 at 18:13 Board Certified Radiologist. This report was verified electronically.
--- NOTE | 2017-04-26 18:21 | PD ---
Physical Exam Date Seen by Provider: Apr 26, 2017 Time Seen by Provider: 17:40 Data Data Last Documented VS Vital Signs Date Time Temp Pulse Resp B/P (MAP) Pulse Ox O2 Delivery O2 Flow Rate FiO2 04/26/17 17:53 98 Nasal Cannula 3.00 04/26/17 17:05 98.1 67 20 168/80 (109) Orders Orders Consent (04/26/17 16:46) Hydromorphone Pf Inj (Dilaudid Pf Inj) (04/26/17 17:00) Propofol 200 Mg/20 Ml Inj (Diprivan 200 (04/26/17 17:00) Shoulder, Limited(2vws) (04/26/17 16:46) Shoulder, Limited(2vws) (04/26/17 ) MDM Medical Record Reviewed: Yes Supervised Visit with MAICOL: Yes Narrative Course Well-nourished well-developed 31-year-old female that appears to be in pain and anxious. I was asked by provider to assist with relocating her right shoulder. Procedures Procedure Narrative Well-nourished well-developed 31-year-old female that appears to be in pain and anxious. I was asked by provider to assist with relocating her right shoulder. Provider, Dr. Lopez, used propofol to sedate the patient for the procedure. 2 RNs, respiratory therapy, Elmer Hitchcock and myself, BEHTEL were present at bedside during procedure. The patient was sedated while the shoulder was reduced using traction and countertraction. Dr. Lopez retains care of this patient. Please see her note for further details and disposition. Scripts Tramadol (Ultram) 50 Mg Tab 50 MG PO Q4H Y for PAIN, #12 TAB 0 Refills Prov: Uma Lopez MD 04/26/17 Ibuprofen (Ibuprofen) 800 Mg Tab 800 MG PO Q8H Y for Pain/Inflammation, #60 TAB 0 Refills Prov: Uma Lopez MD 04/26/17 Maribell Page Apr 26, 2017 18:21
[2017-04-26 18:42] VITALS: BP 142/79; PULSE 70; RESP 18; O2SAT 100
== END 2017-04-26 19:34 | disposition home or self-care (01) ==
LOC: NEPD 16:34
DX: S43.004A Unspecified dislocation of right shoulder joint, initial encounter (principal); S42.251A Displaced fracture of greater tuberosity of right humerus, initial encounter for closed fracture; X58.XXXA Exposure to other specified factors, initial encounter; Z72.0 Tobacco use
CPT/HCPCS: 23650; 73030; 96374; 99152; 99285; J1170

== ENCOUNTER 2017-05-13 13:00 | Emergency (ER) | payer OTHER ==
[~2017-05-13] VITALS: Ht 167.6 cm; Wt 70.0 kg
[~2017-05-13 13:00] MED LIST changes: -HYDR-3533 PO; +IBUP800T23 PO; -METR-1 PO; +ULTR50TA5 PO
[2017-05-13 13:03] VITALS: BP 142/100; PULSE 143; RESP 22; TEMP 98.6; O2SAT 97
--- NOTE | 2017-05-13 13:20 | PD ---
Physical Exam Date Seen by Provider: May 13, 2017 Time Seen by Provider: 13:19 Narrative 31 year old female here for detox. Consuming alcohol for about 30 days with not eating. Voluntary. Seen at [facility] and sent here for eval. No suicidal or homicidal ideation. No chest pain or SOB. Last drank today. Vitals are stable in triage except for elevated HR in the 140s. Awaiting bed placement. Data Data Last Documented VS Vital Signs Date Time Temp Pulse Resp B/P (MAP) Pulse Ox O2 Delivery O2 Flow Rate FiO2 05/13/17 13:03 98.6 143 22 142/100 (114) 97 MDM Medical Record Reviewed: Yes Supervised Visit with MAICOL: No Dheeraj Henning May 13, 2017 13:20
[2017-05-13] MEDS ORDERED: SODIUM CHLOR 0.9% 1000 ML INJ 1,000 ML IV SCH (14:25)
[2017-05-13] MEDS ORDERED: LORazepam 2 MG/ML VIAL IV PUSH ONE ×2 (14:30→15:45)
--- NOTE | 2017-05-13 14:32 | PD ---
HPI Chief Complaint: Alcohol/Drug Intoxication Time Seen by Provider: 14:15 Travel History International Travel<30 days: No Contact w/Intl Traveler<30days: No Traveled to known affect area: No History of Present Illness HPI This is a 31-year-old female who presents for evaluation of alcohol withdrawal. She reports that she has been a heavy drinker for a few years, has been drinking more heavily over the past month. She reports that on average she drinks one to 2 pints of vodka a day. She reports that her last records yesterday. She decided not to drink today because "it's time to quit." She attempted to go to [facility] today but they do not have any beds available. She is complaining of tremulousness, anxiety, nausea. Symptoms are moderate, aggravated by alcohol cessation, no alleviating factors. She is also complaining of right shoulder pain. She fractured and dislocated her right shoulder on April 26. Referred for outpatient follow-up, this is been delayed because the only orthopedist that she was able to get an appointment with is in [place] and she was unable to get a ride. She denies any new injuries but she says that it has been hurting more over the past several days. Aggravated by movement. No other complaints. PFSH Past Medical History Asthma: Yes (CHILDHOOD) Bipolar Disorder: Yes Anxiety: No Depression: Yes Cancer: Yes (NODULAR BASAL CELL CARCINOMA FOREHEAD 05/19) Cardiovascular Problems: No Chemotherapy: No Diminished Hearing: No Endocrine: No Gastrointestinal Disorders: Yes Genitourinary: Yes Hepatitis: Yes (HEP C) Immune Disorder: No Implanted Vascular Access Dvce: No Musculoskeletal: No Neurologic: No Psychiatric: Yes Reproductive: Yes (3 ABNORMAL PAP SMEARS 2013) Respiratory: Yes Immunizations Current: Yes Radiation Therapy: No ?: Not LMP: 05/04/17 : 1 Para: 1 Past Surgical History Abdominal Surgery: No Cardiac Surgery: No Section: Yes (x 1) Ear Surgery: No Endocrine Surgery: No Eye Surgery: No Genitourinary Surgery: No Gynecologic Surgery: Yes Neurologic Surgery: No Oral Surgery: No Other Surgery: Yes (BREAST AUGMENTATION) Social History Alcohol Use: Yes ( ) Tobacco Use: Yes (1/2PPD) Substance Use: No (hx of substance abuse (heroin)) Allergies-Medications (Allergen,Severity, Reaction): Coded Allergies: *MDRO Multi-Drug Resistant Organism (Verified Adverse Reaction, Unknown, ) MRSA (thigh)-10/08/16 Reported Meds & Prescriptions Reported Meds & Active Scripts Active Chlordiazepoxide HCl 25 Mg Capsule 1 Cap PO DIRECTED Use 1 tablet a day by mouth 3 times a day for the first 3 days. Use 1 tablet a day by mouth 2 times a day for the next 3 days. Use 1 tablet a day by mouth 1 time a day for the next 3 days. Ultram (Tramadol HCl) 50 Mg Tab 50 Mg PO Q4H PRN Ibuprofen 800 Mg Tab 800 Mg PO Q8H PRN Reported [place] Carbonate Unknown Strength Cap Unknown Dose PO BID Review of Systems Except as stated in HPI: all other systems reviewed are Neg Physical Exam Narrative GENERAL: This is a well-developed well-nourished female who is tremulous, heart rate in the 140s. SKIN: Warm and dry. HEAD: Atraumatic. Normocephalic. EYES: Pupils equal and round. No scleral icterus. No injection or drainage. ENT: No nasal bleeding or discharge. Mucous membranes pink and moist. NECK: Trachea midline. No JVD. CARDIOVASCULAR: Regular rate and rhythm. No murmur appreciated. RESPIRATORY: No accessory muscle use. Clear to auscultation. Breath sounds equal bilaterally. GASTROINTESTINAL: Abdomen soft, non-tender, nondistended. Hepatic and splenic margins not palpable. MUSCULOSKELETAL: Tender to palpation right shoulder joint with no obvious deformities, pain with range of motion passively and actively. NEUROLOGICAL: Awake and alert. No obvious cranial nerve deficits. Motor grossly within normal limits. Normal speech. Tremulous. PSYCHIATRIC: Appropriate mood and affect; insight and judgment normal. Data Data Last Documented VS Vital Signs Date Time Temp Pulse Resp B/P (MAP) Pulse Ox O2 Delivery O2 Flow Rate FiO2 05/13/17 14:40 95 Room Air 05/13/17 14:40 05/13/17 13:03 98.6 143 22 Orders Orders Electrocardiogram (05/13/17 ) Ecg Monitoring (05/13/17 14:25) Oximetry (05/13/17 14:25) Ed Urine Pregnancytest Poc (05/13/17 14:25) Lorazepam Inj (Ativan Inj) (05/13/17 14:30) Sodium Chlor 0.9% 1000 Ml Inj (Ns 1000 M (05/13/17 14:25) Complete Blood Count With Diff (05/13/17 14:26) Comprehensive Metabolic Panel (05/13/17 14:26) Drug Screen, Random Urine (05/13/17 14:26) Alcohol (Ethanol) (05/13/17 14:26) Shoulder, Limited(2vws) (05/13/17 ) Thiamine Inj (Thiamine Inj) (05/13/17 14:45) Lorazepam Inj (Ativan Inj) (05/13/17 15:45) Support Splint (05/13/17 16:33) Labs Laboratory Tests Test 05/13/17 14:40 05/13/17 15:55 White Blood Count 5.8 TH/MM3 Red Blood Count 4.51 MIL/MM3 Hemoglobin 13.6 GM/DL Hematocrit 40.8 % Mean Corpuscular Volume 90.5 FL Mean Corpuscular Hemoglobin 30.0 PG Mean Corpuscular Hemoglobin Concent 33.2 % Red Cell Distribution Width 13.7 % Platelet Count 175 TH/MM3 Mean Platelet Volume 7.7 FL Neutrophils (%) (Auto) 53.6 % Lymphocytes (%) (Auto) 37.8 % Monocytes (%) (Auto) 6.6 % Eosinophils (%) (Auto) 0.8 % Basophils (%) (Auto) 1.2 % Neutrophils # (Auto) 3.1 TH/MM3 Lymphocytes # (Auto) 2.2 TH/MM3 Monocytes # (Auto) 0.4 TH/MM3 Eosinophils # (Auto) 0.0 TH/MM3 Basophils # (Auto) 0.1 TH/MM3 CBC Comment DIFF FINAL Differential Comment Blood Urea Nitrogen 9 MG/DL Creatinine 0.71 MG/DL Random Glucose 111 MG/DL Total Protein 8.2 GM/DL Albumin 3.9 GM/DL Calcium Level 9.0 MG/DL Alkaline Phosphatase 126 U/L Aspartate Amino Transf (AST/SGOT) 303 U/L Alanine Aminotransferase (ALT/SGPT) 516 U/L Total Bilirubin 0.7 MG/DL Sodium Level 137 MEQ/L Potassium Level 3.7 MEQ/L Chloride Level 103 MEQ/L Carbon Dioxide Level 23.1 MEQ/L Anion Gap 11 MEQ/L Estimat Glomerular Filtration Rate 97 ML/MIN Ethyl Alcohol Level 8 MG/DL Urine Opiates Screen NEG Urine Barbiturates Screen NEG Urine Amphetamines Screen NEG Urine Benzodiazepines Screen NEG Urine Cocaine Screen NEG Urine Cannabinoids Screen NEG MDM Medical Decision Making Medical Screen Exam Complete: Yes Emergency Medical Condition: Yes Medical Record Reviewed: Yes Differential Diagnosis Alcohol withdrawal, electrolyte abnormality, dehydration, SVT Narrative Course The patient will be placed on ECG monitor and pulse oximetry. She will be given IV fluids, thiamine, Ativan. Basic lab work, right shoulder x-ray been ordered. The patient feels improved after the administration of Ativan and fluids. Her lab work is been reviewed and found to be reassuring. At this point in time the plan is to discharge the patient with a short course of Librium that she can use until she can get into [facility]. The x-ray of the right shoulder reveals a healing fracture of the greater tuberosity. The patient is again encouraged to follow-up with orthopedist as previously instructed. She' ll be given a copy of her x-ray report. Diagnosis Primary Impression: Alcohol withdrawal Qualified Codes: F10.230 - Alcohol dependence with withdrawal, uncomplicated Additional Impression: Shoulder fracture, right Qualified Codes: S42.91XD - Fracture of right shoulder girdle, part unspecified, subsequent encounter for fracture with routine healing Referrals: Orthopedist [facility] Forms: Tests/Procedures, Work Release Special Instructions: Allow the patient light duty because of her right shoulder fracture until cleared by orthopedist. Additional Instructions: Follow-up with orthopedist as previously instructed. Librium as prescribed for withdrawal symptoms. Follow-up at [facility]. A healing right shoulder fracture is not a contraindication to detoxification. Return for any emergent medical conditions. Med/Other Pt SpecificInfo: Prescription(s) given, Orthopedic Instructions Scripts Chlordiazepoxide HCl (Chlordiazepoxide HCl) 25 Mg Capsule 1 CAP PO DIRECTED, #18 Use 1 tablet a day by mouth 3 times a day for the first 3 days. Use 1 tablet a day by mouth 2 times a day for the next 3 days. Use 1 tablet a day by mouth 1 time a day for the next 3 days. Prov: Mishel Lay DO 05/13/17 Disposition: 01 DISCHARGE HOME Condition: Stable Rocky Davalos May 13, 2017 14:32
[2017-05-13 14:40] VITALS: O2SAT 96
[2017-05-13] MEDS ORDERED: THIAMINE INJ 100 MG in SODIUM CHLORIDE 0.9% INJ 100 ML IV ONE (14:45)
[2017-05-13 15:00] LABS: AUTOMATED NEUTROPHIL # 3.1 TH/MM3 (1.8-7.7); BASOPHIL # 0.1 TH/MM3 (0-0.2); BASOPHIL % 1.2 % (0.0-2.0); EOSINOPHIL % 0.8 % (0.0-4.0); HEMATOCRIT 40.8 % (35.0-46.0); HEMO FLAGS DIFF FINAL; LYMPH % 37.8 % (9.0-44.0); LYMPHOCYTE # 2.2 TH/MM3 (1.0-4.8); MEAN CELL VOLUME 90.5 FL (80.0-100.0); MEAN CORPUSCULAR HGB CONC 33.2 % (32.0-36.0); MONO % 6.6 % (0.0-8.0); NEUT % 53.6 % (16.0-70.0); PLATELET COUNT 175 TH/MM3 (150-450); RED BLOOD COUNT 4.51 MIL/MM3 (4.00-5.30); RED CELL DISTRIBUTION WIDTH 13.7 % (11.6-17.2); WHITE BLOOD COUNT 5.8 TH/MM3 (4.0-11.0)
[2017-05-13 15:23] LABS: ALT (GPT) 516 U/L (10-53); ANION GAP 11 MEQ/L (5-15); AST (GOT) 303 U/L (15-37); BICARBONATE 23.1 MEQ/L (21.0-32.0); BLOOD UREA NITROGEN 9 MG/DL (7-18); CHLORIDE 103 MEQ/L (98-107); GLOMERULAR FILTRATION RATE 97 ML/MIN (>89); POTASSIUM 3.7 MEQ/L (3.5-5.1); SODIUM (NA) 137 MEQ/L (136-145)
[2017-05-13 15:25] LABS: ALCOHOL 8 MG/DL (0-5); ALKALINE PHOSPHATASE 126 U/L (45-117); TOTAL BILIRUBIN ADULT 0.7 MG/DL (0.2-1.0)
--- NOTE | 2017-05-13 15:35 | RADRPT ---
EXAM DATE/TIME: 05/13/2017 15:12 [facility] COMPARISON: SHOULDER RIGHT LTD (2VWS), April 26, 2017, 17:48. INDICATIONS : Dislocated right shoulder on 04/26/17, continues to have pain in right shoulder MEDICAL HISTORY : right shoulder dislocated SURGICAL HISTORY : None. ENCOUNTER: [facility] ACUITY: 2 weeks PAIN SCORE: 10/10 LOCATION: Right shoulder FINDINGS: The exam demonstrates a small area of cortical irregularity off of the lateral margin of the humeral head consistent with an old, partially healed fracture. The patient is known to have had a greater tu berosity fracture in April. The humeral head appears well situated within the glenoid. CONCLUSION: 1. Healing fracture of the greater tuberosity. 2. Anatomic alignment. Irving Gomez MD on May 13, 2017 at 15:32 Board Certified Radiologist. This report was verified electronically.
[2017-05-13] MEDS ORDERED: CHLO25CA9 PO (16:35)
[2017-05-13 16:37] VITALS: BP 124/68; PULSE 104; RESP 18; O2SAT 100
--- NOTE | 2017-05-14 23:57 | EKG ---
Date Performed: 05/13/2017 Time Performed: 16:09:23 PTAGE: 31 years EKG: SINUS TACHYCARDIA ABNORMAL RHYTHM ECG PREVIOUS TRACING : 07/25/2016 19.46 Compared to prior tracing no significant change DOCTOR: Eliseo Crespo Interpretating Date/Time 05/14/2017 23:56:40
== END 2017-05-13 17:44 | disposition home or self-care (01) ==
LOC: NEPE 13:00
DX: F10.230 Alcohol dependence with withdrawal, uncomplicated (principal); S42.91XD Fracture of right shoulder girdle, part unspecified, subsequent encounter for fracture with routine healing; R94.31 Abnormal electrocardiogram [ECG] [EKG]; B19.20 Unspecified viral hepatitis C without hepatic coma; F17.210 Nicotine dependence, cigarettes, uncomplicated; X58.XXXD Exposure to other specified factors, subsequent encounter
CPT/HCPCS: 73030; 80053; 80307; 84703; 85025; 93005; 96365; 96375; 96376; 99285; J2060; J3411; J7030